=== PATIENT | male | born 1995 | race Two or more races ===

== ENCOUNTER 2019-06-11 13:00 | Emergency (ER) | payer BC ==
[~2019-06-11] VITALS: Ht 182.9 cm; Wt 63.5 kg
--- NOTE | 2019-06-11 13:07 | NUR ---
ED Nurse Note: Pt from home reports tightening of his throat. Denies SOB or rashes. PT is AAO x,4 ambulates with steady gait and speaks in clear and full sentences.
[2019-06-11] MEDS ORDERED: Solu-MEDROL 125mg Inj IM ONE (13:30)
--- NOTE | 2019-06-11 13:30 | NUR ---
ED Nurse Note: Pt state sthat he is going to drive. Garfield/Shamika notified and ordered to DC genevieve.
[2019-06-11] MEDS: DiphenhydrAMINE 50mg/ml Inj IM ONE ×2 (13:34→13:36)
[2019-06-11 13:40] VITALS: BP 132/70
[2019-06-11] MEDS ORDERED: PREDNISONE20 M1 PO (14:16)
[2019-06-11 14:25] VITALS: BP 131/70
--- NOTE | 2019-06-11 14:25 | NUR ---
ER DISCHARGE NOTE: Patient is cleared to be discharged per PA, pt is aox4, on room air, with stable vital signs. pt was given dc and prescription instructions, pt was able to verbalize understanding, pt id band removed without complications. pt is able to ambulate with steady gait. pt took all belongings.
--- NOTE | 2019-06-11 14:32 | Emergency Room Report ---
History of Present Illness General Chief Complaint: Allergic Reaction Source: Patient Present Illness HPI 23-year-old male brought in by EMS complaining of throat tightness after eating pesto containing pine nuts. Denies cough, vomiting, rash, lip/tongue swelling, eye swelling. Allergies: Coded Allergies: PENICILLINS (Verified Allergy, Intermediate, 06/11/19) [place] Nut (Verified Allergy, Intermediate, 06/11/19) Patient History Past Medical History: none Past Surgical History: none Social History: Reports: alcohol use Nursing Documentation-[facility] Past Medical History: No Stated History Review of Systems All Other Systems: negative except mentioned in HPI Physical Exam Vital Signs Date Time Temp Pulse Resp B/P (MAP) Pulse Ox O2 Delivery O2 Flow Rate FiO2 06/11/19 12:57 97.9 68 16 135/82 (99) 98 Room Air General Appearance: normal inspection, well appearing Eyes: bilateral eye normal inspection, bilateral eye PERRL ENT: hearing grossly normal, normal pharynx, no angioedema, normal voice Respiratory: chest non-tender, lungs clear, normal breath sounds, speaking full sentences Cardiovascular #1: regular rate, rhythm, no edema Skin: no rash, warm/dry Medical Decision Making PA Attestation This patient was seen under the direct supervision of [Dr. Hair] who directed all aspects of care and diagnostic interpretation. Diagnostic Impression: Primary Impression: Allergic reaction ER Course ED course HPI: 23-year-old male complaining of throat tightness after ingesting pesto containing pine nuts. Patient states that he has known allergy to pine nuts. Patient is well-appearing, nontoxic. Speaking full sentences without respiratory distress. Denies shortness of breath, lungs are clear to auscultation bilaterally. Oxygen saturation 98%No rash. No signs or symptoms of angioedema or anaphylaxis. Ddx: Allergic reaction vs. Anaphylaxis versus pharyngitis versus foreign body in throat. HPI & PE consistent with: Allergic reaction Orders/ Interventions: Patient monitored for 1 hour in the ER. Oxygen saturation remained 98-99%, no acute distress. Patient given Solu-Medrol 125 mg IM. Disposition: Patient stable for discharge home, has Epi-pen at home. Patient will discharged with prednisone 40 mg x 3 days. Follow-up with PCP in 2 days return to ER if worsening symptoms, new symptoms, or sudden change in condition. Last Vital Signs Date Time Temp Pulse Resp B/P (MAP) Pulse Ox O2 Delivery O2 Flow Rate FiO2 06/11/19 13:40 98.0 78 15 132/70 100 Room Air Status: unchanged Disposition: HOME, SELF-CARE Condition: Stable Scripts Prednisone (Prednisone) 20 Mg Tablet 40 MG PO DAILY for 3 Days, #6 TAB Prov: Cindi Baron 06/11/19 Departure Forms: Return to Work Return to Work Date: Jun 12, 2020 Additional Instructions: Follow-up with PCP in 2 days or return to ED if worsening symptoms, new symptoms , or sudden change in condition. Cindi Baron Jun 11, 2019 14:32
== END 2019-06-11 14:25 | disposition home or self-care (01) ==
LOC: EDBD 13:00 → EMR 14:20
DX: T78.40XA Allergy, unspecified, initial encounter (principal); X58.XXXA Exposure to other specified factors, initial encounter; Z91.018 Allergy to other foods; Z88.0 Allergy status to penicillin
CPT/HCPCS: 96372; 99283; J2930